=== PATIENT | male | born 1930 | race African-American/Black ===

== ENCOUNTER 2017-06-15 14:58 | Inpatient (IN) | payer OTHER ==
[~2017-06-15] VITALS: Ht 172.7 cm; Wt 73.9 kg
[2017-06-15 18:19] LABS: HEMATOCRIT. 26.4 % (42.0-52.0); HEMOGLOBIN. 8.3 g/dL (14.0-18.0); MEAN CORPUSCULAR HEMOGLOBIN 25.8 pg (28.0-32.0); MEAN CORPUSCULAR VOLUME 82.2 fL (80.0-94.0); MEAN PLATELET VOLUME 9.8 fl (7.4-10.4); PLATELET 201 x1000/uL (130-400); RED BLOOD CELL COUNT 3.21 mill/uL (4.7-6.1); RED CELL DISTRIBUTION WIDTH 25.7 % (11.6-14.6)
[2017-06-15 18:24] LABS: INR 1.1; PROTHROMBIN TIME 11.7 sec (9.4-11.6)
[2017-06-15 18:46] LABS: PLATELET ESTIMATE NORMAL
[2017-06-15] MEDS ORDERED: ACETAMINOPHEN 325MG TABLET PO PRN (20:45)
[2017-06-15] MEDS ORDERED: ONDANSETRON HCL 4MG/2ML VIAL IV PRN (20:45)
[2017-06-15] MEDS ORDERED: DOCUSATE SODIUM 100MG CAPSULE PO PRN (20:45)
[2017-06-15] MEDS ORDERED: CLONIDINE 0.1MG TABLET PO PRN (20:45)
[2017-06-15 20:59] LABS: CARBON DIOXIDE 28 mEq/L (21-32); CHLORIDE 102 mEq/L (98-107)
[2017-06-15 21:03] LABS: TROPONIN I < 0.02 ng/mL (0.00-0.04)
[2017-06-15 22:33] LABS: HEPATITIS B SURFACE ANTIGEN NEGATIVE
[2017-06-15 23:00] VITALS: BP 156/55
[2017-06-15 23:01] LABS: HEPATITIS B CORE AB IGM NEGATIVE
[2017-06-15 23:03] LABS: HEPATITIS A AB IGM NEGATIVE (NEGATIVE)
[2017-06-16 00:30] VITALS: BP 134/42
[2017-06-16] MEDS ORDERED: ZOLPIDEM TARTRATE 5MG TABLET PO PRN (01:00)
[2017-06-16] MEDS ORDERED: LEVOFLOXACIN 500MG PREMIX 100 ML IV NR (01:00)
[2017-06-16] MEDS: METRONIDAZOLE 500 MG PREMIX 100 ML IV SCH ×3 (01:58→16:42)
[2017-06-16] MEDS ORDERED: SEVE800T8 PO (02:31)
[2017-06-16] MEDS ORDERED: AMLO10TA80 PO (02:31)
[2017-06-16] MEDS ORDERED: FOS500 PO (02:31)
[2017-06-16 08:00] VITALS: BP 108/36
[2017-06-16 08:02] LABS: BASOPHILS % 0.9 % (0.0-2.0); EOSINOPHILS % 1.6 % (0.0-5.0); LYMPHOCYTES % 14.8 % (20.0-50.0); MEAN CORPUSCULAR HEMOGLOBIN 26.1 pg (28.0-32.0); MEAN CORPUSCULAR VOLUME 83.1 fL (80.0-94.0); MEAN PLATELET VOLUME 8.7 fl (7.4-10.4); NEUTROPHILS % 73.7 % (40.0-76.0); PLATELET 177 x1000/uL (130-400); RED CELL DISTRIBUTION WIDTH 25.1 % (11.6-14.6)
[2017-06-16 08:06] LABS: HEMOGLOBIN. 6.3 g/dL (14.0-18.0)
[2017-06-16] MEDS: ENOXAPARIN 30MG/0.3ML SYR SUBCUT SCH (08:18)
[2017-06-16] MEDS: ASPIRIN 81MG EC TABLET PO SCH (08:18)
[2017-06-16 11:56] VITALS: BP 120/48
[2017-06-16 15:51] VITALS: BP 131/52
[2017-06-16 18:12] LABS: BASOPHILS % 1.6 % (0.0-2.0); EOSINOPHILS % 1.6 % (0.0-5.0); LYMPHOCYTES % 22.8 % (20.0-50.0); MEAN CORPUSCULAR HEMOGLOBIN 25.5 pg (28.0-32.0); MEAN CORPUSCULAR VOLUME 83.1 fL (80.0-94.0); MEAN PLATELET VOLUME 8.3 fl (7.4-10.4); MONOCYTES % 10.6 % (2.0-8.0); NEUTROPHILS % 63.4 % (40.0-76.0); PLATELET 169 x1000/uL (130-400); RED BLOOD CELL COUNT 2.46 mill/uL (4.7-6.1); RED CELL DISTRIBUTION WIDTH 24.3 % (11.6-14.6)
[2017-06-16 18:14] LABS: HEMATOCRIT. 20.5 % (42.0-52.0); HEMOGLOBIN. 6.3 g/dL (14.0-18.0)
[2017-06-16 18:27] LABS: PLATELET ESTIMATE NORMAL
[2017-06-16 20:07] VITALS: BP 148/62
[2017-06-17 00:27] VITALS: BP 165/67
[2017-06-17] MEDS: METRONIDAZOLE 500 MG PREMIX 100 ML IV SCH ×3 (00:27→15:53)
[2017-06-17] MEDS ORDERED: LEVOFLOXACIN 250MG PREMIX 50 ML IV SCH (01:00)
[2017-06-17 01:07] LABS: HEMATOCRIT 26.4 % (42.0-52.0); HEMOGLOBIN 8.8 g/dL (14.0-18.0)
[2017-06-17 04:00] VITALS: BP 145/45
[2017-06-17 06:38] LABS: BASOPHILS % 0.7 % (0.0-2.0); EOSINOPHILS % 1.6 % (0.0-5.0); HEMATOCRIT. 25.8 % (42.0-52.0); LYMPHOCYTES % 8.9 % (20.0-50.0); MEAN CORPUSCULAR VOLUME 83.8 fL (80.0-94.0); MEAN PLATELET VOLUME 9.2 fl (7.4-10.4); MONOCYTES % 13.5 % (2.0-8.0); NEUTROPHILS % 75.3 % (40.0-76.0); PLATELET 153 x1000/uL (130-400); RED BLOOD CELL COUNT 3.07 mill/uL (4.7-6.1); RED CELL DISTRIBUTION WIDTH 19.8 % (11.6-14.6)
[2017-06-17 07:03] LABS: HEMOGLOBIN. 8.3 g/dL (14.0-18.0)
[2017-06-17] MEDS: ASPIRIN 81MG EC TABLET PO SCH (08:13)
[2017-06-17] MEDS: ENOXAPARIN 30MG/0.3ML SYR SUBCUT SCH (08:13)
[2017-06-17 12:00] VITALS: BP 151/56
[2017-06-17 16:00] VITALS: BP 151/43
[2017-06-17 18:45] VITALS: BP 151/43
[2017-06-17 20:00] VITALS: BP 155/59
== END 2017-06-17 21:30 | disposition short-term general hospital (02) | DRG 377 ==
LOC: EDSEX 15:12 → ER 15:12 → 7WST 19:47 → ENRESERV 21:24 → EDBEDREQ 22:16
PROVIDERS: ADMIT Hospitalist; ATTEND Hospitalist
PROC: 30233N1 Transfusion of Nonautologous Red Blood Cells into Peripheral Vein, Percutaneous Approach (ICD-10-PCS; principal; 2017-06-16)
DX: K57.93 Diverticulitis of intestine, part unspecified, without perforation or abscess with bleeding (principal); N18.6 End stage renal disease; I13.2 Hypertensive heart and chronic kidney disease with heart failure and with stage 5 chronic kidney disease, or end stage renal disease; E46 Unspecified protein-calorie malnutrition; E11.22 Type 2 diabetes mellitus with diabetic chronic kidney disease; I82.531 Chronic embolism and thrombosis of right popliteal vein; I82.511 Chronic embolism and thrombosis of right femoral vein; E87.5 Hyperkalemia; D63.1 Anemia in chronic kidney disease; E78.00 Pure hypercholesterolemia, unspecified; E78.5 Hyperlipidemia, unspecified; E87.8 Other disorders of electrolyte and fluid balance, not elsewhere classified; I50.9 Heart failure, unspecified; H26.9 Unspecified cataract; K57.90 Diverticulosis of intestine, part unspecified, without perforation or abscess without bleeding; Z99.2 Dependence on renal dialysis; Z68.24 Body mass index [BMI] 24.0-24.9, adult
CPT/HCPCS: 36415; 71010; 74176; 80048; 80053; 82270; 82962; 83036; 83880; 84484; 85014; 85018; 85025; 85610; 85651; 86705; 86709; 86803; 86850; 86870; 86900; 86920; 87340; 93005; 99285; C1893; J1956; J3490; J7030; J7040; J7050; P9016